=== PATIENT | female | born 1970 | race Caucasian/White ===

== ENCOUNTER 2018-07-13 20:51 | Inpatient (IN) | payer OTHER ==
[2018-07-13] MEDS ORDERED: NITROGLYCERIN 0.4 MG/TAB SL ONE (21:25)
[2018-07-13 21:39] LABS: Protime INR 1.04
[2018-07-13 21:40] LABS: Absolute Lymphocytes (CBC) 2.9 K/uL (0.7-4.9); Absolute Monocytes 0.6 K/uL (0.1-1.3); Absolute Neutrophil 4.2 K/uL (1.8-8.0); Basophils % 0.3 % (0-1.3); Hematocrit 35.1 % (36.0-45.0); Lymphocytes % 36.4 % (15.3-44.8); MPV 9.6 fL (7.6-11.3); Monocytes % 8.1 % (3.3-12.3); RBC Red Blood Cell Count 4.05 M/uL (3.86-4.86)
[2018-07-13] MEDS ORDERED: ACETAMINOPHEN 500 MG TAB ONE (22:12)
[2018-07-13 22:23] LABS: ALT/SGPT 24 U/L (12-78); AST/SGOT 16 U/L (15-37); Albumin 3.4 g/dL (3.4-5.0); Alkaline Phosphatase 104 U/L (45-117); BUN Blood Urea Nitrogen 11 mg/dL (7-18); Bicarbonate 26 mmol/L (21-32); Bilirubin Direct < 0.1 mg/dL (0-0.2); Bilirubin Total 0.3 mg/dL (0.2-1.0); Glucose Level 94 mg/dL (74-106); Magnesium 1.7 mg/dL (1.8-2.4); NT PRO-BNP 108 pg/mL (<125); Potassium 3.4 mmol/L (3.5-5.1); Protein, Total 7.4 g/dL (6.4-8.2); Sodium Level 144 mmol/L (136-145); Troponin (Emerg Dept Use Only) < 0.02 ng/mL (0.0-0.045)
--- NOTE | 2018-07-13 22:45 | ER ---
Nurse's Notes [facility] Name: Sunshine Harvey Age: 47 yrs Sex: Female : 1970 Arrival Date: 07/13/2018 Time: 20:52 Bed 19 Private MD: Peterson Key T Diagnosis: Angina pectoris, unspecified Presentation: 07/13 20:55 Presenting complaint: Patient states: that she is having chest pain that radiates to left arm. Denies any nausea, vomiting or shortness of breath. Transition of care: patient was not received from another setting of care. Onset of symptoms was July 13, 2018 at 18:30. Risk Assessment: Do you want to hurt yourself or someone else? Patient reports no desire to harm self or others. Initial Sepsis Screen: Does the patient meet any 2 criteria? No. Patient's initial sepsis screen is negative. Does the patient have a suspected source of infection? No. Patient's initial sepsis screen is negative. Care prior to arrival: None. 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 - Social history:: Smoking status: Patient/guardian denies using tobacco, Patient/guardian denies using alcohol, street drugs. - Ebola Screening: : Patient negative for fever greater than or equal to 101.5 degrees Fahrenheit, and additional compatible Ebola Virus Disease symptoms Patient denies exposure to infectious person Patient denies travel to an Ebola-affected area in the 21 days before illness onset. Screenin:55 Abuse screen: Denies threats or abuse. Nutritional screening: No deficits noted. fc Tuberculosis screening: No symptoms or risk factors identified. Fall Risk None identified. Assessment: 21:00 General: Appears in no apparent distress. uncomfortable, Behavior is calm, cooperative, rr5 appropriate for age. Pain: Complains of pain in chest Pain radiates to left arm Pain currently is 9 out of 10 on a pain scale. Quality of pain is described as aching, Pain began suddenly, Is intermittent. 21:00 Neuro: Level of Consciousness is awake, alert, obeys commands, Oriented to person, rr5 place, time, situation, Appropriate for age Reports numbness in left arm. Cardiovascular: Capillary refill < 3 seconds Patient's skin is warm and dry. Rhythm is regular. Respiratory: Airway is patent Respiratory effort is even, unlabored, Respiratory pattern is regular, symmetrical. GI: No signs and/or symptoms were reported involving the gastrointestinal system. : No signs and/or symptoms were reported regarding the genitourinary system. EENT: No signs and/or symptoms were reported regarding the EENT system. Derm: Skin is intact, Skin temperature is warm. Musculoskeletal: Capillary refill < 3 seconds, Range of motion: intact in all extremities. 21:30 Reassessment: Patient appears in no apparent distress at this time. complaints of chest rr5 pain 8/10. ED provider informed 2 nd GTN SL given. 21:50 Reassessment: Patient appears in no apparent distress at this time. Patient is alert, rr5 oriented x 3, equal unlabored respirations, skin warm/dry/pink. a little better compare before as verbalized by patient. pain score of 7/10. Patient states feeling better. Patient states symptoms have improved. 22:10 Reassessment: complaints of headache ED provider informed with order made and carried rr5 out. 22:10 Pain: Complains of pain in head Pain does not radiate. Pain currently is 7 out of 10 on rr5 a pain scale. Quality of pain is described as aching, Pain began gradually, Is intermittent. 22:30 Reassessment: Patient appears in no apparent distress at this time. Patient is alert, rr5 oriented x 3, equal unlabored respirations, skin warm/dry/pink. patient complaining of chest pain facial grimace, crying noted, pains score of 10/10. ED provider informed with order made and carried out. confirmed to patient she said she can take morphine for pain. 22:30 Pain: Complains of pain in chest Pain radiates to left arm Pain currently is 10 out of rr5 10 on a pain scale. Quality of pain is described as aching, Pain began suddenly, Is intermittent. 22:55 Reassessment: patient screaming for gastric burning pain, examined by the ED provider rr5 with order made and carried out. 23:25 Reassessment: Patient appears in no apparent distress at this time. Patient is alert, rr5 oriented x 3, equal unlabored respirations, skin warm/dry/pink. after the GI cocktail patient said she feels relieved and went to sleep. Patient states feeling better. Patient states symptoms have improved. 07/14 00:15 Reassessment: Patient appears in no apparent distress at this time. Patient is alert, rr5 oriented x 3, equal unlabored respirations, skin warm/dry/pink. asleep on bed comfortably. Patient states symptoms have improved. Vital Signs: 07/13 20:55 BP 133 / 79; Pulse 80; Resp 20; Temp 98.1(O); Pulse Ox 98% on R/A; Weight 101.15 kg fc (R); Height 5 ft. 7 in. (170.18 cm) (R); Pain 9/10; 21:50 BP 103 / 60; Pulse 75; Resp 17; Pulse Ox 99% on 2 lpm NC; rr5 22:10 BP 117 / 55; Pulse 66; Resp 16; Pulse Ox 98% on 2 lpm NC; Pain 7/10; rr5 23:00 BP 173 / 90; Pulse 70; Resp 19; Pulse Ox 99% 2 lpm ; Pain 10/10; rr5 23:30 BP 127 / 58; Pulse 65; Resp 17; Pulse Ox 99% on 2 lpm NC; rr5 07/14 00:00 BP 113 / 60; Pulse 64; Resp 16; Temp 98.2; Pulse Ox 98% on 2 lpm NC; rr5 00:00 Pain 0/10; rr5 00:49 BP 132 / 69; Pulse 62; Resp 13; Temp 98.2; Pulse Ox 100% on R/A; rr5 07/13 20:55 Body Mass Index 34.93 (101.15 kg, 170.18 cm) ED Course: 07/13 20:52 Patient arrived in ED. do 20:52 Peterson Key MD is Private Physician. do 20:55 Arm band placed on Patient placed in an exam room, on a stretcher. fc 20:55 Patient has correct armband on for positive identification. Placed in gown. Bed in low fc position. Call light in reach. clinical research monitor on. Pulse ox on. NIBP on. 20:55 No provider procedures requiring assistance completed. Patient maintains SpO2 fc saturation greater than 95% on room air. 21:00 Babak Barrios MD is Attending Physician. tw4 21:00 EKG done, by ED staff, reviewed by Babak Barrios MD. fc 21:06 Ar Christopher, RN is Primary Nurse. rr5 21:11 Triage completed. fc 21:15 Inserted saline lock: 20 gauge in right forearm, using aseptic technique. Blood la1 collected. 21:23 XRAY Chest (1 view) In Process Unspecified. EDMS 21:30 Ar Christopher RN is Primary Nurse. rr5 22:44 Abner Najera MD is Hospitalizing Provider. tw4 07/14 00:49 Patient admitted, IV remains in place. intact. rr5 Administered Medications: 07/13 21:15 Drug: Nitroglycerin 0.4 mg Route: Sublingual; la1 21:30 Drug: Nitroglycerin 0.4 mg {Note: BP 118/61, HR 73bpm.} Route: Sublingual; rr5 23:31 Follow up: Response: No adverse reaction rr5 22:10 Drug: Tylenol 1000 mg Route: PO; rr5 23:31 Follow up: Response: No adverse reaction rr5 22:35 Drug: Zofran 4 mg Route: IVP; Site: right antecubital; rr5 23:37 Follow up: Response: No adverse reaction rr5 22:37 Drug: morphine 4 mg Route: IVP; Site: right antecubital; rr5 23:37 Follow up: Response: No adverse reaction rr5 23:00 Drug: ProTONIX 40 mg Route: IVP; Site: right forearm; rr5 07/14 00:13 Follow up: Response: No adverse reaction rr5 07/13 23:02 Drug: Reglan 10 mg Route: IVP; Site: right forearm; rr5 07/14 00:13 Follow up: Response: No adverse reaction rr5 07/13 23:11 Drug: GI Cocktail without - (Maalox Suspension 30 ml, Lidocaine Liquid 2 % 15 rr5 ml) Route: PO; 07/14 00:13 Follow up: Response: No adverse reaction rr5 Outcome: 07/13 22:44 Decision to Hospitalize by Provider. tw4 07/14 00:48 Admitted to Tele accompanied by tech, via stretcher, room 423, with chart, Report rr5 called to damon Condition: stable Instructed on the need for admit. 00:58 Patient left the ED. rr5 Signatures: Dispatcher [employer] EDMS Jhoana Mendieta RN CYNDY Gio Machado RN RN la1 Zuly Boothe Terrence, MD MD tw4 Ar Christopher RN RN rr5
--- NOTE | 2018-07-13 22:45 | EDPHYS ---
Physician Documentation [facility] Name: Sunshine Harvey Age: 47 yrs Sex: Female : 1970 Arrival Date: 07/13/2018 Time: 20:52 Bed 19 Private MD: Peterson Key T ED Physician Babak Barrios HPI: 07/14 04:55 This 47 yrs old Female presents to ER via Ambulatory with complaints of Chest tw4 Pain, Numbness Of Arm. 04:55 The patient or guardian reports chest pain that is located primarily in the anterior tw4 chest wall. Onset: today. The pain does not radiate. Associated signs and symptoms: The patient has no apparent associated signs or symptoms. The chest pain is described as a pressure. Duration: The patient or guardian reports a single episode. Modifying factors: The symptoms are alleviated by. Modifying factors: the symptoms are aggravated by nothing. Severity of pain: At its worst the pain was moderate in the emergency department the pain is unchanged. 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 - Social history:: Smoking status: Patient/guardian denies using tobacco, Patient/guardian denies using alcohol, street drugs. - Ebola Screening: : Patient negative for fever greater than or equal to 101.5 degrees Fahrenheit, and additional compatible Ebola Virus Disease symptoms Patient denies exposure to infectious person Patient denies travel to an Ebola-affected area in the 21 days before illness onset. ROS: 07/14 04:55 Constitutional: Negative for fever, chills, and weight loss, Eyes: Negative for injury, tw4 pain, redness, and discharge, Respiratory: Negative for shortness of breath, cough, wheezing, and pleuritic chest pain, Abdomen/GI: Negative for abdominal pain, nausea, vomiting, diarrhea, and constipation, Back: Negative for injury and pain, MS/Extremity: Negative for injury and deformity, Skin: Negative for injury, rash, and discoloration, Neuro: Negative for headache, weakness, numbness, tingling, and seizure. Cardiovascular: Positive for chest pain, Negative for edema, orthopnea, palpitations, paroxysmal nocturnal dyspnea. Exam: 04:55 Constitutional: This is a well developed, well nourished patient who is awake, alert, tw4 and in no acute distress. Head/Face: Normocephalic, atraumatic. Chest/axilla: Normal chest wall appearance and motion. Nontender with no deformity. No lesions are appreciated. Cardiovascular: Regular rate and rhythm with a normal S1 and S2. No gallops, murmurs, or rubs. Normal PMI, no JVD. No pulse deficits. Respiratory: Lungs have equal breath sounds bilaterally, clear to auscultation and percussion. No rales, rhonchi or wheezes noted. No increased work of breathing, no retractions or nasal flaring. Abdomen/GI: Soft, non-tender, with normal bowel sounds. No distension or tympany. No guarding or rebound. No evidence of tenderness throughout. Back: No spinal tenderness. No costovertebral tenderness. Full range of motion. MS/ Extremity: Pulses equal, no cyanosis. Neurovascular intact. Full, normal range of motion. Neuro: Awake and alert, GCS 15, oriented to person, place, time, and situation. Cranial nerves II-XII grossly intact. Motor strength 5/5 in all extremities. Sensory grossly intact. Cerebellar exam normal. Normal gait. Vital Signs: 07/13 20:55 BP 133 / 79; Pulse 80; Resp 20; Temp 98.1(O); Pulse Ox 98% on R/A; Weight 101.15 kg fc (R); Height 5 ft. 7 in. (170.18 cm) (R); Pain 9/10; 21:50 BP 103 / 60; Pulse 75; Resp 17; Pulse Ox 99% on 2 lpm NC; rr5 22:10 BP 117 / 55; Pulse 66; Resp 16; Pulse Ox 98% on 2 lpm NC; Pain 7/10; rr5 23:00 BP 173 / 90; Pulse 70; Resp 19; Pulse Ox 99% 2 lpm ; Pain 10/10; rr5 23:30 BP 127 / 58; Pulse 65; Resp 17; Pulse Ox 99% on 2 lpm NC; rr5 07/14 00:00 BP 113 / 60; Pulse 64; Resp 16; Temp 98.2; Pulse Ox 98% on 2 lpm NC; rr5 00:00 Pain 0/10; rr5 00:49 BP 132 / 69; Pulse 62; Resp 13; Temp 98.2; Pulse Ox 100% on R/A; rr5 07/13 20:55 Body Mass Index 34.93 (101.15 kg, 170.18 cm) fc MDM: 07/13 21:08 Patient medically screened. 07/14 04:55 Differential diagnosis: esophagitis, gastritis, herpes zoster, Anne-Presley syndrome, tw4 myocarditis, pulmonary embolus. Data reviewed: vital signs, nurses notes. Data interpreted: Pulse oximetry: Interpretation: normal. Counseling: I had a detailed discussion with the patient and/or guardian regarding: the historical points, exam findings, and any diagnostic results supporting the discharge/admit diagnosis. Physician consultation: Abner Najera MD regarding admission, patient's condition, and will see patient in the [facility]. Special discussion: I discussed with the patient/guardian in detail that at this point there is no indication for admission to the hospital. It is understood, however, that if the symptoms persist or worsen the patient needs to return immediately for re-evaluation. 07/13 21:01 Order name: Basic Metabolic Panel; Complete Time: 22:35 rust 07/13 22:35 Interpretation: Normal except: GFR 81; CL 111; K 3.4. 07/13 21:01 Order name: CBC with Diff; Complete Time: 22:35 07/13 22:35 Interpretation: Normal except: HCT 35.1; HGB 11.5. 07/13 21:01 Order name: LFT's; Complete Time: 22:35 07/13 22:35 Interpretation: Normal except: GLOB 4.0; A/G 0.9. 07/13 21:01 Order name: Magnesium; Complete Time: 22:35 rust 07/13 22:35 Interpretation: Within normal limits: MG 1.7. 07/13 21:01 Order name: NT PRO-BNP 07/13 21:01 Order name: PT-INR tw 07/13 21:01 Order name: Troponin (emerg Dept Use Only) tw 07/13 21:01 Order name: XRAY Chest (1 view) tw 07/14 00:19 Order name: Basic Metabolic Panel EDNJ 07/14 00:19 Order name: Basic Metabolic Panel EDNJ 07/14 00:19 Order name: Troponin I EDNJ 07/14 00:19 Order name: Troponin I EDNJ 07/14 00:19 Order name: Troponin I EDNJ 07/14 00:20 Order name: Echo with Doppler EDNJ 07/13 21:01 Order name: EKG; Complete Time: 21:02 tw4 07/13 21:01 Order name: Cardiac monitoring; Complete Time: 21:16 tw07/13 21:01 Order name: EKG - Nurse/Tech; Complete Time: 21:16 07/13 21:01 Order name: IV Saline Lock; Complete Time: 21:16 tw4 07/13 21:01 Order name: Labs collected and sent; Complete Time: 21:16 tw07/13 21:01 Order name: O2 Per Protocol; Complete Time: 21:16 07/14 00:20 Order name: Heart Healthy EDNJ 07/14 00:20 Order name: EKG Electrocardiogram EDN[facility] 07/14 00:20 Order name: EKG Electrocardiogram [facility] 07/13 21:01 Order name: O2 Sat Monitoring; Complete Time: 21:16 Administered Medications: 07/13 21:15 Drug: Nitroglycerin 0.4 mg Route: Sublingual; la1 21:30 Drug: Nitroglycerin 0.4 mg {Note: BP 118/61, HR 73bpm.} Route: Sublingual; rr5 23:31 Follow up: Response: No adverse reaction rr5 22:10 Drug: Tylenol 1000 mg Route: PO; rr5 23:31 Follow up: Response: No adverse reaction rr5 22:35 Drug: Zofran 4 mg Route: IVP; Site: right antecubital; rr5 23:37 Follow up: Response: No adverse reaction rr5 22:37 Drug: morphine 4 mg Route: IVP; Site: right antecubital; rr5 23:37 Follow up: Response: No adverse reaction rr5 23:00 Drug: ProTONIX 40 mg Route: IVP; Site: right forearm; rr5 07/14 00:13 Follow up: Response: No adverse reaction rr5 07/13 23:02 Drug: Reglan 10 mg Route: IVP; Site: right forearm; rr5 07/14 00:13 Follow up: Response: No adverse reaction rr5 07/13 23:11 Drug: GI Cocktail without - (Maalox Suspension 30 ml, Lidocaine Liquid 2 % 15 rr5 ml) Route: PO; 07/14 00:13 Follow up: Response: No adverse reaction rr5 Disposition: 07/13/18 22:44 Hospitalization ordered by Abner Najera for Observation. Preliminary diagnosis is Angina pectoris, unspecified. - Bed requested for Telemetry/MedSurg (observation). - Status is Observation. rr5 - Condition is Stable. - Problem is new. - Symptoms have improved. UTI on Admission? No Signatures: Dispatcher [employer] EDMS Rocio Villalba RN RN Jhoana Mendieta RN CYNDY Gio Machado RN RN la1 Babak Barrios MD MD tw4 Ar Christopher RN RN rr5 Corrections: (The following items were deleted from the chart) 00:30 07/13 22:44 Hospitalization Ordered by Abner Najera MD for Observation. Preliminary diagnosis is Angina pectoris, unspecified. Bed requested for Telemetry/MedSurg (observation). Status is Observation. Condition is Stable. Problem is new. Symptoms have improved. UTI on Admission? No. tw4 07/14 00:58 00:30 07/13/2018 22:44 Hospitalization Ordered by Abner Najera MD for Observation. rr5 Preliminary diagnosis is Angina pectoris, unspecified. Bed requested for Telemetry/MedSurg (observation). Status is Observation. Condition is Stable. Problem is new. Symptoms have improved. UTI on Admission? No. mw
[2018-07-13] MEDS ORDERED: MORPHINE 4 MG/ML SYR ONE (22:48)
[2018-07-13] MEDS ORDERED: ONDANSETRON 4 MG/2 ML VIAL ONE (22:48)
[2018-07-13] MEDS ORDERED: MAGNE/ALUM HYDROXD 30 ML UCUP ONE (23:12)
[2018-07-13] MEDS ORDERED: LIDOCAINE VISCOUS 2% SOLN 15 ML UDC ONE (23:13)
[2018-07-13] MEDS ORDERED: PANTOPRAZOLE 40 MG INJ ONE (23:13)
[2018-07-13] MEDS ORDERED: METOCLOPRAMIDE 10 MG/2mL INJ ONE (23:14)
[2018-07-14] MEDS ORDERED: MORPHINE 4 MG/ML SYR IV PRN (00:16)
[2018-07-14 02:09] LABS: Urine Appearance CLEAR; Urine Bilirubin NEGATIVE (NEG); Urine Blood NEGATIVE (NEG); Urine Color YELLOW; Urine Glucose NEGATIVE (NEG); Urine Protein NEGATIVE (NEG); Urine Specific Gravity >=1.030 (1.005-1.030); Urine Urobilinogen 0.2 mg/dL (0.2-1.0)
[2018-07-14 02:10] LABS: Urine Microscopic Reflex ORDER UMIC
[2018-07-14 02:26] LABS: Urine Bacteria <20 /HPF (<20); Urine Culture Reflex Order REFLEXED; Urine Mucus 3+ /HPF (NONE SEEN); Urine RBC <5 /HPF (NONE SEEN)
--- NOTE | 2018-07-14 04:17 | P.HP ---
Certification for Inpatient Patient admitted to: Observation With expected LOS: <2 Midnights Patient will require the following post-hospital care: None Practitioner: I am a practitioner with admitting privileges, knowledge of patient current condition, hospital course, and medical plan of care. Services: Services provided to patient in accordance with Admission requirements found in Title 42 Section 412.3 of the Code of Federal Regulations Patient History Date of Service: 07/14/18 Reason for admission: CP r/o ACS History of Present Illness: Patient is a 47-year-old female came into the hospital with chest discomfort. Patient's pain was radiating to her left arm so she came into the emergency room for further evaluation. Her initial troponins and EKG have been negative. In the emergency room, she was given morphine for pain. When I tried to obtain her history initially she was very lethargic. Her was with her and he gave me most of the information. She was having some chest discomfort along with some shortness of breath. It as it was not getting any better she came into the hospital. She has had some chronic pain issues and has been diagnosed with irritable bowel syndrome as well. She takes Ultram for this. She will be admitted to be ruled out for acute coronary syndrome. Anticipate discharge home later today. Will get an echo in her repeat EKG and troponins and if this is negative then she can follow with Cardiology-pending their evaluation. Allergies hydromorphone [From Dilaudid] Allergy (Verified 07/14/18 01:08) Anaphylaxis meperidine [From Demerol] Allergy (Verified 07/14/18 01:08) Anaphylaxis Home Medications: Multivit-Minerals/Folic Acid [Centrum Multigummies] 1 tab PO DAILY 07/14/18 Pnv No.95/Ferrous Fum/Folic AC [ Multivitamin Tablet] 1 tab PO DAILY Tramadol HCl [Ultram] 1 tab PO TID PRN 07/14/18 - Past Medical/Surgical History Has patient received pneumonia vaccine in the past: No Diabetic: No -: IBS -: COPD -: Tubal Ligation -: Feet Surgery (heel and toes) -: Cholecystectomy 2009 - Family History Mother Medical History: Hypertension, Diabetes Father Notes: TB and Emphysema Sister Medical History: Hypertension, Diabetes Brother Medical History: GI disease - Social History Smoking Status: Never smoker Alcohol use: Yes CD- Drugs: No Caffeine use: No Place of Residence: Home Review of Systems 10-point ROS is otherwise unremarkable Physical Examination - Vital Signs Temperature: 98.7 F Blood Pressure: 164/86 Pulse: 107 Respirations: 14 Pulse Ox (%): 93 - Physical Exam General: Alert, In no apparent distress, Oriented x3 HEENT: Atraumatic, PERRLA, Mucous membr. moist/pink, EOMI, Sclerae nonicteric Neck: Supple, 2+ carotid pulse no bruit, No LAD, Without JVD or thyroid abnormality Respiratory: Clear to auscultation bilaterally, Normal air movement Cardiovascular: Regular rate/rhythm, Normal S1 S2, No murmurs Gastrointestinal: Normal bowel sounds, Soft and benign, Non-distended, No tenderness Musculoskeletal: No clubbing, No swelling, No tenderness Integumentary: No rashes Neurological: Normal gait, Normal speech, Normal strength at 5/5 x4 extr, Normal tone, Sensation intact, Cranial nerves 3-12 intact, Normal affect Lymphatics: No axilla or inguinal lymphadenopathy - Studies Laboratory Data (last 24 hrs) 07/13/18 21:15: PT 12.3, INR 1.04 07/13/18 21:15: WBC 8.0, Hgb 11.5 L, Hct 35.1 L, Plt Count 250 07/13/18 21:15: Sodium 144, Potassium 3.4 L, BUN 11, Creatinine 0.76, Glucose 94 , Magnesium 1.7 L, Total Bilirubin 0.3, AST 16, ALT 24, Alkaline Phosphatase 104 Assessment & Plan - Problems (Diagnosis) (1) Chest pain, rule out acute myocardial infarction Current Visit: Yes Status: Acute (2) COPD (chronic obstructive pulmonary disease) Current Visit: Yes Status: Acute - Plan 1. Serial troponins and EKG 2. Cardiology consultation 3. Echocardiogram 4. Anti-platelet therapy, beta-delvin, statin, and O2 as needed 5. IV morphine for pain 6. Nitro p.r.n. Discharge Plan: Home Plan to discharge in: 24 Hours - Advance Directives Does patient have a Living Will: No Does patient have a Durable POA for Healthcare: Yes - Code Status/Comfort Care Code Status Assessed: Yes Code Status: Full Code Critical Care: No Time Spent Managing PTS Care (In Minutes): 45
[2018-07-14] MEDS ORDERED: NA CHLORIDE 0.9% 1,000 ML IV SCH (06:00)
[2018-07-14 06:49] LABS: Thyroid Stimulating Hormone 4.47 uIU/mL (0.360-3.740)
[2018-07-14] MEDS ORDERED: TRAMADOL HCL 50 MG TAB PO PRN (06:51)
[2018-07-14] MEDS ORDERED: IPRATROPIUM BROM 0.5MG/2.5ML NEB PRN (06:52)
--- NOTE | 2018-07-14 07:36 | RAD REPORT ---
EXAM DESCRIPTION: Yovanny Single View07/13/2018 9:23 pm CLINICAL HISTORY: Chest pain COMPARISON: none FINDINGS: Mild prominence of the right paratracheal region. Lungs appear clear of acute infiltrate. The heart is normal size IMPRESSION: Mild prominence of the right paratracheal region may represent vessels or mild lymphaden opathy. PA and lateral chest series recommended
[2018-07-14] MEDS: ACETAMINOPHEN 500 MG TAB PO PRN ×2 (08:48→18:50)
[2018-07-14] MEDS: MULTIVITAMIN TAB PO SCH (08:48)
[2018-07-14] MEDS: ASPIRIN 325 MG TAB PO SCH (08:48)
[2018-07-14] MEDS: PRENATAL VITAMIN PO SCH (08:48)
[2018-07-14] MEDS: ARFORMOTEROL TARTRATE 15 MCG/2 ML VIAL.NEB NEB SCH ×2 (08:48→20:00)
[2018-07-14] MEDS ORDERED: METOPROLOL TAR 50 MG TAB PO SCH ×2 (09:00)
[2018-07-14] MEDS ORDERED: ENOXAPARIN 40 MG/0.4 ML SQ SCH (09:00)
--- NOTE | 2018-07-14 09:19 | EKG ---
Test Date: 2018-07-13 Test Time: 20:59:46 Learning Support Specialist: [id number] MEASUREMENT RESULTS: Intervals: Rate: 75 PA: 164 QRSD: 94 QT: 408 QTc: 455 [place]: P: 62 PA: 164 QRS: 59 T: 71 INTERPRETIVE STATEMENTS: Normal sinus rhythm Cannot rule out Inferior infarct, age undetermined Abnormal ECG No previous ECG available for comparison Electronically Signed On 07-14-18 09:18:31 CDT by Christian Norton
[2018-07-14] MEDS ORDERED: REGADENOSON 0.4 MG/5 ML SYR IV ONE (09:36)
--- NOTE | 2018-07-14 12:30 | CON ---
Chief Complaint: Chest pain. History Of Present Illness: The patient was having pain in the left pectoral region, left side of he r neck. It radiated down her left arm. She was driving home [place]. Her i nsists that she come to the hospital. Since being here, EKGs, cardiac enzymes are normal. The patie nt has never had myocardial infarction, stroke, diabetes, dyslipidemia. She is multigravid. She has had tubal ligation, gallbladder surgery, foot surgeries. Home Medications: Multivitamin, iron with folic acid, and tramadol. Allergies: SHE IS ALLERGIC TO HYDROMORPHONE AND MEPERIDINE. Physical Examination: General: A 5 feet 7 inches, 223 pounds, obese. Alert, oriented, pleasant, not in distress. Lungs: Clear. Cardiac: Normal. Carotids, no bruit. Abdomen: Soft. I can't palpate aorta. Extremities: No femoral bruits. Normal distal pulses. No cyanosis, clubbing, or edema. Troponins are normal. I think the patient should have a stress test and echo. If those are normal, she could be discharged home. This is more likely to be nerve root impingement, carpal tunnel syndrome, thorac ic outlet syndrome, something like that rather than coronary heart disease. SRIRAM/MODL Voice ID: [id number] Report ID: [id number]
--- NOTE | 2018-07-14 13:04 | P.DS ---
Admission Date: 07/14/18 Discharge Date: 07/14/18 Primary Care Provider: Dr. Key Disposition: ROUTINE DISCHARGE Discharge Condition: GOOD Reason for Admission: CP r/o ACS Consultations: Cardiology-Dr. Norton Procedures: ECHO: Cardiac Stress Test: Medical Problem List: Chest pain likely non cardiac suspect GERD Chronic back pain COPD Brief History of Present Illness: 47-year-old female presented to emergency room with chest pain. Patient was admitted for further evaluation. Hospital Course: Patient presented with chest pain. Patient seen and evaluated by Cardiology. Cardiology recommended echocardiogram and cardiac stress test. Cardiac enzymes unremarkable. Lipid panel unremarkable. Chest pain likely noncardiac. Chest pain likely GERD. Patient may continue with Pepcid 20 mg 1 pill twice daily. Patient will continue with lifestyle modification education. Patient may benefit with GI evaluation as an outpatient including EGD. This can be further addressed by her PCP. No need for blood pressure medication at discharge. Recommend to monitor blood pressures closely. If blood pressures remain above 140/90 consistently then the patient may require medication. This can be further addressed by her PCP. Patient with underlying COPD. Patient reports using albuterol often. Will recommend to start Advair 1 puff twice daily. Patient may continue with albuterol 2 puffs twice daily as needed for shortness of breath. Patient in benefit with pulmonology evaluation to further address. Patient with chronic pain. Recommend to limit nonsteroidal anti-inflammatories. Patient may follow up with her PCP to further address. Vital Signs/Physical Exam: Temp Pulse Resp BP Pulse Ox 97.6 F 56 16 106/51 L 97 07/14/18 12:00 07/14/18 12:00 07/14/18 12:00 07/14/18 12:00 07/14/18 12:00 General: Alert, In no apparent distress, Oriented x3, Cooperative HEENT: Atraumatic Neck: Supple Respiratory: Clear to auscultation bilaterally, Normal air movement Cardiovascular: Normal pulses, Regular rate/rhythm Gastrointestinal: Normal bowel sounds, Soft and benign, Non-distended, No tenderness, No masses, No rebound, No guarding Neurological: Normal speech, Normal strength at 5/5 x4 extr, Normal tone Laboratory Data at Discharge: WBC 8.0 K/uL (4.3-10.9) 07/13/18 21:15 Hgb 11.5 g/dL (12.0-15.0) L 05/12/19 21:15 Hct 35.1 % (36.0-45.0) L 07/13/18 21:15 Plt Count 250 K/uL (152-406) 07/13/18 21:15 PT 12.3 SECONDS (9.5-12.5) 07/13/18 21:15 INR 1.04 07/13/18 21:15 Sodium 144 mmol/L (136-145) 07/13/18 21:15 Potassium 3.4 mmol/L (3.5-5.1) L 07/13/18 21:15 BUN 11 mg/dL (7-18) 07/13/18 21:15 Creatinine 0.76 mg/dL (0.55-1.3) 07/13/18 21:15 Glucose 94 mg/dL (74-106) 07/13/18 21:15 Magnesium 1.7 mg/dL (1.8-2.4) L 07/13/18 21:15 Total Bilirubin 0.3 mg/dL (0.2-1.0) 07/13/18 21:15 AST 16 U/L (15-37) 07/13/18 21:15 ALT 24 U/L (12-78) 07/13/18 21:15 Alkaline Phosphatase 104 U/L (45-117) 07/13/18 21:15 Troponin I < 0.02 ng/mL (0.0-0.045) 07/14/18 06:03 Triglycerides 104 mg/dL (<150) 07/14/18 06:03 Cholesterol 146 mg/dL (<200) 07/14/18 06:03 HDL Cholesterol 50 mg/dL (40-60) 07/14/18 06:03 Cholesterol/HDL Ratio 2.92 07/14/18 06:03 Home Medications: Albuterol Sulfate [Proair Hfa] 2 puff IH TID PRN #1 hfa.aer.ad 07/14/18 Famotidine [Pepcid] 20 mg PO BID #60 tab 07/14/18 Fluticasone/Salmeterol [Advair 250-50 Diskus] 1 each IH BID #1 blst.w.dev Multivit-Minerals/Folic Acid [Centrum Multigummies] 1 tab PO DAILY 07/14/18 Pnv No.95/Ferrous Fum/Folic AC [ Multivitamin Tablet] 1 tab PO DAILY Tramadol HCl [Ultram] 1 tab PO TID PRN 07/14/18 New Medications: Albuterol Sulfate [Proair Hfa] 2 puff IH TID PRN #1 hfa.aer.ad PRN Reason: Shortness Of Breath Famotidine [Pepcid] 20 mg PO BID #60 tab Fluticasone/Salmeterol [Advair 250-50 Diskus] 1 each IH BID #1 blst.w.dev Patient Discharge Instructions: 1. Recommend to follow up with his PCP within 1 week to follow up this hospitalization. 2. Patient presented with chest pain. Patient seen and evaluated by Cardiology. Cardiology recommended echocardiogram and cardiac stress test. Cardiac enzymes unremarkable. Lipid panel unremarkable. Chest pain likely noncardiac. Chest pain likely GERD. Patient may continue with Pepcid 20 mg 1 pill twice daily. Patient will continue with lifestyle modification education. Patient may benefit with GI evaluation as an outpatient including EGD. This can be further addressed by her PCP. No need for blood pressure medication at discharge. Recommend to monitor blood pressures closely. If blood pressures remain above 140/90 consistently then the patient may require medication. This can be further addressed by her PCP. 3. Patient with underlying COPD. Patient reports using albuterol often. Will recommend to start Advair 1 puff twice daily. Patient may continue with albuterol 2 puffs twice daily as needed for shortness of breath. Patient in benefit with pulmonology evaluation to further address. 4. Patient with chronic pain. Recommend to limit nonsteroidal anti- inflammatories. Patient may follow up with her PCP to further address. Diet: AHA Activity: Ad con Time spent managing pt's care (in minutes): 55
--- NOTE | 2018-07-14 13:48 | ECHO ---
HEIGHT: 5 ft 7 in WEIGHT: 223 lb 0 oz DATE OF STUDY: 07/14/[address]: Abner Najera MD 2-DIMENSIONAL: YES M.MODE: YES DOPPLER: YES COLOR FLOW: YES TDS: NO PORTABLE: NO DEFINITY: NO BUBBLE STUDY: NO DIAGNOSIS: CHEST PAIN CARDIAC HISTORY: CATHERIZATION: NO SURGERY: NO PROSTHETIC VALVE: NO PACEMAKER: NO MEASUREMENTS (cm) DIASTOLIC (NORMALS) SYSTOLIC (NORMALS) IVSd 1.1 (0.6-1.2) LA Diam 4.5 (1.9-4.0) LVEF 69% LVIDd 4.8 (3.5-5.7) LVIDs 3.0 (2.0-3.5) %FS 39% LVPWd 1.1 (0.6-1.2) Ao Diam 2.6 (2.0-3.7) 2 DIMENSIONAL ASSESSMENT: RIGHT ATRIUM: NORMAL LEFT ATRIUM: DILATED RIGHT VENTRICLE: NORMAL LEFT VENTRICLE: NORMAL TRICUSPID VALVE: NORMAL MITRAL VALVE: NORMAL PULMONIC VALVE: NORMAL AORTIC VALVE: NORMAL PERICARDIAL EFFUSION: NONE AORTIC ROOT: NORMAL LEFT VENTRICULAR WALL MOTION: NORMAL. DOPPLER/COLOR FLOW: NORMAL. COMMENTS: NORMAL LEFT VENTRICULAR EJECTION FRACTION. DILATED LEFT ATRIUM. OTHERWISE NORAML 2D ECHO WITH DOPPLER. TECHNOLOGIST: ANGELA JUAREZ
--- NOTE | 2018-07-14 15:56 | RAD REPORT ---
EXAM DESCRIPTION: NM - Rest Stress Cardiac Imaging - 07/14/2018 3:27 pm CLINICAL HISTORY: CHEST PAIN Chest pain. COMPARISON: No comparisons TECHNIQUE: The patient was administered approximately 10mCi of Tc 99m Sestamibi prior to resting SPE CT imaging of the heart. The patient was then administered approximately 30 mCi of Tc 99m Sestamibi f ollowing exercise or pharmacologic stress. Multiplanar SPECT images were reviewed. FINDINGS: Moderate-size area of mildly diminished radiopharmaceutical accumulation is seen in the an terior wall with stress. No fixed defect is seen to suggest hibernating myocardium or scarred myocard ium. The end diastolic volume is 105 ml, the end systolic volume is 44 ml, and the ejection fraction is 58 %. IMPRESSION: Moderate sized area of mild stress-induced ischemia involving the anterior wall.
--- NOTE | 2018-07-14 16:01 | RAD REPORT ---
EXAM DESCRIPTION: RAD - Chest Pa And Lat (2 Views) - 07/14/2018 3:53 pm CLINICAL HISTORY: follow up lymphadenopathy Chest pain. COMPARISON: Chest Single View dated 07/13/2018 FINDINGS: The lungs are clear. The heart is normal in size. No displaced fractures. IMPRESSION: No acute or concerning finding suspected.
--- NOTE | 2018-07-14 16:09 | P.PN ---
Subjective Date of Service: 07/14/18 Primary Care Provider: none Chief Complaint: CP r/o ACS Subjective: Other Physical Examination - Vital Signs Temperature: 97.6 F Blood Pressure: 106/51 Pulse: 56 Respirations: 16 Pulse Ox (%): 97 - Physical Exam General: Alert HEENT: Atraumatic Neck: Supple Respiratory: Clear to auscultation bilaterally, Normal air movement Cardiovascular: Normal pulses, Regular rate/rhythm Gastrointestinal: Soft and benign, Non-distended Neurological: Normal speech, Normal strength at 5/5 x4 extr, Normal tone, Normal affect - Studies Laboratory Data (last 24 hrs) 07/13/18 21:15: PT 12.3, INR 1.04 07/13/18 21:15: WBC 8.0, Hgb 11.5 L, Hct 35.1 L, Plt Count 250 07/13/18 21:15: Sodium 144, Potassium 3.4 L, BUN 11, Creatinine 0.76, Glucose 94 , Magnesium 1.7 L, Total Bilirubin 0.3, AST 16, ALT 24, Alkaline Phosphatase 104 Medications List Reviewed: Yes Assessment & Plan Discharge Plan: Home Plan to discharge in: 24 Hours Physician Review Additional Text: Impression: Chest pain with abnormal stress test showing moderate size area of mild stress- induced ischemia involving the anterior wall Hypertension Plan: Patient with abnormal stress test. Will discuss findings with patient. Patient will need to have heart catheterization to further evaluate. Will discuss with cardiology. Patient to be NPO after midnight. Anticipate heart catheterization tomorrow. Await findings. Continue with blood pressure medication control. Continue to monitor and assess. Time Spent Managing Pts Care (In Minutes): 55
--- NOTE | 2018-07-14 16:25 | TREADPHA ---
DX: CHEST PAIN Date of Study: 07/14/18 Ht: 5 7 Wt: 223 lb 0 oz Consulting Physician: DARRIAN MEDICATIONS: TYLENOL, ASPIRIN, LOVENOX, LOPRESSOR. HISTORY: 47 YEAR FEMALE WITH COMPLAINTS OF CHEST PAIN. HISTORY: HYPERTENSION, NON-SMOKER, OCCASIONAL DRINKER. PHYSICIAL EXAMINATION: RESTING B.P.: 112/74 RESTING H.R.: 53 RESTING EKG: SINUS BRADYCARDIA, OTHERWSE NORMAL. PROTOCOL: LEXISCAN EXERCISE TIME: 3:30 B.P. AT [place] STRESS: 131/78 IMPRESSION: LEXISCAN INJECTED, FOLLOWED BY CARDIOLITE PER PROTOCOL, SEE NUCLEAR MEDICINE REPORT. NO SUPRAVENTRICULAR TACHYCARDIA, NO VENTRICULAR TACHYCARDIA, NO PREMATURE ATRIAL COMPLEXS, OR PREMATURE VENTRICULAR COMPLEXS. PATIENT REPORTED 4/10 CHEST PAIN. NON-DIAGNOSTIC ELECTROCARDIOGRAM WITH LEXISCAN STRESS.
[2018-07-14] MEDS ORDERED: ATORVASTATIN 40 MG TAB PO SCH (21:00)
[2018-07-14] MEDS: METOPROLOL TAR 25 MG TAB PO SCH (21:31)
[2018-07-15] MEDS: ACETAMINOPHEN 500 MG TAB PO PRN ×2 (00:32→09:29)
[2018-07-15 04:26] LABS: Absolute Lymphocytes (CBC) 2.8 K/uL (0.7-4.9); Absolute Monocytes 0.4 K/uL (0.1-1.3); Absolute Neutrophil 2.8 K/uL (1.8-8.0); Basophils % 0.6 % (0-1.3); Eosinophils % 3.4 % (0-4.4); Hematocrit 33.2 % (36.0-45.0); Lymphocytes % 44.3 % (15.3-44.8); MPV 9.7 fL (7.6-11.3); Monocytes % 7.1 % (3.3-12.3); RBC Red Blood Cell Count 3.85 M/uL (3.86-4.86)
[2018-07-15 04:34] LABS: Potassium 3.7 mmol/L (3.5-5.1)
--- NOTE | 2018-07-15 07:53 | EKG ---
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
[2018-07-15] MEDS: ARFORMOTEROL TARTRATE 15 MCG/2 ML VIAL.NEB NEB SCH (08:25)
[2018-07-15] MEDS ORDERED: ONDANSETRON 4 MG/2 ML VIAL IV PRN (08:38)
[2018-07-15] MEDS: METOPROLOL TAR 25 MG TAB PO SCH (09:00)
[2018-07-15] MEDS: PRENATAL VITAMIN PO SCH (09:00)
[2018-07-15] MEDS: MULTIVITAMIN TAB PO SCH (09:00)
[2018-07-15] MEDS: ASPIRIN 325 MG TAB PO SCH (09:18)
[2018-07-15] MEDS ORDERED: HEPA 1000U/500MLS 1,000 UNIT/500 ML BAG IV ONE (10:16)
[2018-07-15] MEDS ORDERED: LIDOCAINE 1% MPF 30 ML VIAL ONE (10:16)
--- NOTE | 2018-07-15 10:30 | EKG ---
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
[2018-07-15] MEDS ORDERED: NA CHLORIDE 0.9% 500 ML ONE (10:51)
[2018-07-15] MEDS ORDERED: FENTANYL CITR 100 MCG/2 ML ONE ×3 (10:59→12:11)
[2018-07-15] MEDS ORDERED: ATROPINE SULF 1 MG/10 ML SYR IV ONE (10:59)
[2018-07-15] MEDS ORDERED: MIDAZOLAM HCL 2 MG/2 ML INJ ONE ×2 (10:59→11:15)
[2018-07-15] MEDS ORDERED: NA CHLORIDE 0.9% 0 ML ONE (11:00)
[2018-07-15] MEDS ORDERED: FENTANYL CITR 100 MCG/2 ML IV PRN (12:13)
[2018-07-15] MEDS ORDERED: ACETAMINOPHEN 325 MG TABLET PO PRN (13:00)
[2018-07-15] MEDS ORDERED: NA CHLORIDE 0.9% 1,000 ML IV SCH (13:00)
[2018-07-15] MEDS ORDERED: NITROGLYCERIN 0.4 MG/TAB SL PRN (13:00)
--- NOTE | 2018-07-15 13:52 | P.DS ---
Admission Date: 07/14/18 Discharge Date: 07/15/18 Primary Care Provider: none Disposition: ROUTINE DISCHARGE Discharge Condition: GOOD Reason for Admission: CP r/o ACS Consultations: Cardiology-Dr. Roa Procedures: Cardiac stress test: FINDINGS: Moderate-size area of mildly diminished radiopharmaceutical accumulation is seen in the anterior wall with stress. No fixed defect is seen to suggest hibernating myocardium or scarred myocardium. The end diastolic volume is 105 ml, the end systolic volume is 44 ml, and the ejection fraction is 58 %. IMPRESSION: Moderate sized area of mild stress-induced ischemia involving the anterior wall. ECHO: EF 69% LEFT VENTRICULAR WALL MOTION: NORMAL. DOPPLER/COLOR FLOW: NORMAL. COMMENTS: NORMAL LEFT VENTRICULAR EJECTION FRACTION. DILATED LEFT ATRIUM. OTHERWISE NORAML 2D ECHO WITH DOPPLER. Heart catheterization: Normal coronaries. Medical problem list: Chest pain with normal heart cath. GERD history of IBS Elevated BP without Hypertension COPD Chronic pain Brief History of Present Illness: 47-year-old female presented to the emergency room with chest pain. Initial cardiac enzymes unremarkable. Patient was admitted for further evaluation. Hospital Course: Patient presented with chest pain. Patient was admitted for further evaluation. Patient seen and evaluated by Cardiology. Echocardiogram unremarkable. Cardiac stress test was abnormal. Patient had heart catheterization. Heart catheterization shows normal coronaries. At discharge patient will continue with aspirin 81 mg daily and fish oil 1000 mg 1 pill twice daily. Patient may follow up with cardiology in 2-4 weeks to follow up this hospitalization. Patient with history of IBS and chronic pain. Patient likely with underlying GERD. At discharge she may continue with her pain medication tramadol. Patient may also continue with Pepcid 20 mg 1 pill twice daily. Recommend to follow up with GI as an outpatient to further evaluate. Patient initially given medication for blood pressure. Patient did not require any medication. No need for medication at this time. Recommend to monitor blood pressures daily. If her blood pressure remains elevated above 140/90, she is to contact her PCP to further address. Patient likely with underlying COPD. Medication initiated. Recommend at discharge to continue with Advair 1 puff twice daily and Pro air 2 puffs 3 times a day as needed for shortness of breath. Recommend to follow up with pulmonology as an outpatient to further evaluate. Patient may require pulmonary function test to further assess. Vital Signs/Physical Exam: Temp Pulse Resp BP Pulse Ox 97.9 F 46 L 16 119/70 94 07/15/18 12:15 07/15/18 12:15 07/15/18 12:15 07/15/18 12:15 07/15/18 12:00 General: Alert, In no apparent distress, Oriented x3, Cooperative HEENT: Atraumatic Neck: Supple Respiratory: Clear to auscultation bilaterally, Normal air movement Cardiovascular: Normal pulses, Regular rate/rhythm Gastrointestinal: Normal bowel sounds, Soft and benign, Non-distended, No tenderness, No masses, No rebound, No guarding Musculoskeletal: No erythema, No tenderness, No warmth Integumentary: No tenderness/swelling, No erythema, No warmth, No cyanosis Neurological: Normal speech, Normal strength at 5/5 x4 extr, Normal tone, Normal affect Laboratory Data at Discharge: WBC 6.3 K/uL (4.3-10.9) D 07/15/18 03:33 Hgb 11.1 g/dL (12.0-15.0) L 07/15/18 03:33 Hct 33.2 % (36.0-45.0) L 07/15/18 03:33 Plt Count 254 K/uL (152-406) 07/15/18 03:33 PT 12.3 SECONDS (9.5-12.5) 07/13/18 21:15 INR 1.04 07/13/18 21:15 Sodium 144 mmol/L (136-145) 07/15/18 03:33 Potassium 3.7 mmol/L (3.5-5.1) 07/15/18 03:33 BUN 14 mg/dL (7-18) 07/15/18 03:33 Creatinine 0.76 mg/dL (0.55-1.3) 07/15/18 03:33 Glucose 95 mg/dL (74-106) 07/15/18 03:33 Magnesium 1.7 mg/dL (1.8-2.4) L 07/13/18 21:15 Total Bilirubin 0.3 mg/dL (0.2-1.0) 07/13/18 21:15 AST 16 U/L (15-37) 07/13/18 21:15 ALT 24 U/L (12-78) 07/13/18 21:15 Alkaline Phosphatase 104 U/L (45-117) 07/13/18 21:15 Troponin I < 0.02 ng/mL (0.0-0.045) 07/14/18 13:55 Triglycerides 104 mg/dL (<150) 07/14/18 06:03 Cholesterol 146 mg/dL (<200) 07/14/18 06:03 HDL Cholesterol 50 mg/dL (40-60) 07/14/18 06:03 Cholesterol/HDL Ratio 2.92 07/14/18 06:03 Home Medications: Albuterol Sulfate [Proair Hfa] 2 puff IH TID PRN #1 hfa.aer.ad 07/14/18 Famotidine [Pepcid] 20 mg PO BID #60 tab 07/14/18 Fluticasone/Salmeterol [Advair 250-50 Diskus] 1 each IH BID #1 blst.w.dev Multivit-Minerals/Folic Acid [Centrum Multigummies] 1 tab PO DAILY 07/14/18 Pnv No.95/Ferrous Fum/Folic AC [ Multivitamin Tablet] 1 tab PO DAILY Tramadol HCl [Ultram] 1 tab PO TID PRN 07/14/18 Aspirin [Aspirin EC 81 MG] 81 mg PO DAILY #90 tablet. 07/15/18 Stanley-3 Fatty Acids/Fish Oil [Fish Oil 1,000 mg Softgel] 1 each PO BID #60 capsule 07/15/18 New Medications: Albuterol Sulfate [Proair Hfa] 2 puff IH TID PRN #1 hfa.aer.ad PRN Reason: Shortness Of Breath Aspirin [Aspirin EC 81 MG] 81 mg PO DAILY #90 tablet. Famotidine [Pepcid] 20 mg PO BID #60 tab Fluticasone/Salmeterol [Advair 250-50 Diskus] 1 each IH BID #1 blst.w.dev [place]-3 Fatty Acids/Fish Oil [Fish Oil 1,000 mg Softgel] 1 each PO BID #60 capsule Patient Discharge Instructions: 1. Follow up with her PCP in 1 week to follow up this hospitalization. 2. Patient presented with chest pain. Patient was admitted for further evaluation. Patient seen and evaluated by Cardiology. Echocardiogram unremarkable. Cardiac stress test was abnormal. Patient had heart catheterization. Heart catheterization shows normal coronaries. At discharge patient will continue with aspirin 81 mg daily and fish oil 1000 mg 1 pill twice daily. Patient may follow up with cardiology in 2-4 weeks to follow up this hospitalization. 3. Patient with history of IBS and chronic pain. Patient likely with underlying GERD. At discharge she may continue with her pain medication tramadol. Patient may also continue with Pepcid 20 mg 1 pill twice daily. Recommend to follow up with GI as an outpatient to further evaluate. 4. Patient initially given medication for blood pressure. Patient did not require any medication. No need for medication at this time. Recommend to monitor blood pressures daily. If her blood pressure remains elevated above 140/90, she is to contact her PCP to further address. 5. Patient likely with underlying COPD. Medication initiated. Recommend at discharge to continue with Advair 1 puff twice daily and Pro air 2 puffs 3 times a day as needed for shortness of breath. Recommend to follow up with pulmonology as an outpatient to further evaluate. Patient may require pulmonary function test to further assess. Diet: AHA Activity: Ad con Time spent managing pt's care (in minutes): 55
--- NOTE | 2018-07-15 21:07 | OP ---
Date of Procedure: 07/15/2018 Surgeon: Venkat Roa MD The patient was admitted on 07/14/[address] Staton' service, had a stress test that day which was p ositive. She was scheduled for a heart catheterization on 07/15/2018 because of chest pain and posit gwen stress test. Procedures: Left heart catheterization, selective coronary arteries. Procedure In Detail: The patient was brought to the laboratory mechanical technician as an inpatient, prepped and draped in the routine sterile fashion. Given Versed and fentanyl for sedation. A 6-[place] sheath introduced i n the right common femoral artery successfully. Angiogram there was normal. Angio-Seal was used to close the case. A 6-[place] Lorenza catheter right and left were used to cannulate the coronaries res pectively. She had perfectly normal coronaries, not even plaque build-up. 6-[place] catheters were used. There were no complications. Blood Loss: 5 cc. Postoperative Diagnoses: Positive chest pain, positive stress test, normal coronaries. Co-operators: Alvaro Streeter and Ms. Fernandez. Anesthesia: Total conscious sedation was 30 minutes. Plan: For her to go home today and we will see her in the office in a couple of weeks. OKKI/AMY Voice ID: [id number] Report ID: [id number]
== END 2018-07-15 17:28 | disposition home or self-care (01) | DRG 287 ==
LOC: ER 20:51 → ERHOLD 07-14 00:16 → 4TH 07-14 00:42 → OBSVTOIN 07-14 12:47
PROVIDERS: ADMIT Hospitalist; ATTEND Hospitalist
PROC: 4A023N7 Measurement of Cardiac Sampling and Pressure, Left Heart, Percutaneous Approach (ICD-10-PCS; principal; 2018-07-15)
PROC: B201YZZ Plain Radiography of Multiple Coronary Arteries using Other Contrast (ICD-10-PCS; 2018-07-15)
DX: R07.9 Chest pain, unspecified (principal); K21.9 Gastro-esophageal reflux disease without esophagitis; R03.0 Elevated blood-pressure reading, without diagnosis of hypertension; J44.9 Chronic obstructive pulmonary disease, unspecified; G89.29 Other chronic pain; R94.39 Abnormal result of other cardiovascular function study; E66.9 Obesity, unspecified; Z68.34 Body mass index [BMI] 34.0-34.9, adult
CPT/HCPCS: 36415; 71045; 71046; 78452; 80048; 80061; 80076; 81003; 81015; 83735; 83880; 84439; 84443; 84484; 85025; 85610; 87077; 87086; 87088; 87186; 93005; 93017; 93306; 93454; 94640; 96365; 96367; 99285; A9500; C1760; C1893; C9113; G0378; J0583; J1650; J2250; J2405; J2765; J2785; J3010; J7030; J7605